=== PATIENT | female | born 1970 | race Caucasian/White ===

== ENCOUNTER 2022-11-14 13:33 | Emergency (ER) | payer MEDICAID ==
[~2022-11-14] VITALS: Ht 160 cm; Wt 62.0 kg
[2022-11-14 14:04] VITALS: BP 134/92
[2022-11-14] MEDS ORDERED: IBUP-2028 MT (16:43)
== END 2022-11-14 17:02 | disposition home or self-care (01) ==
LOC: ER 13:33
DX: M79.661 Pain in right lower leg (principal); Z86.59 Personal history of other mental and behavioral disorders; Y04.0XXA Assault by unarmed brawl or fight, initial encounter; Y93.89 Activity, other specified; Y92.89 Other specified places as the place of occurrence of the external cause; Y99.8 Other external cause status
CPT/HCPCS: 99281